=== PATIENT | female | born 1970 ===

== ENCOUNTER → 2022-03-01 | Outpatient (CLI) | payer BC | LOC: COL.RAD 09:42 | DX: M48.061 Spinal stenosis, lumbar region without neurogenic claudication (principal); M54.16 Radiculopathy, lumbar region ==

== ENCOUNTER → 2022-04-22 | Outpatient (CLI) | payer BC | LOC: MHCPAIN 13:51 | DX: M79.7 Fibromyalgia (principal); M54.59 Other low back pain; M54.2 Cervicalgia; M53.3 Sacrococcygeal disorders, not elsewhere classified | CPT/HCPCS: G0463 ==

== ENCOUNTER 2022-05-17 12:01 | Outpatient (CLI) | payer BC ==
[~2022-05-17] VITALS: Ht 165.1 cm; Wt 85.4 kg
[2022-05-17 12:32] VITALS: BP 108/71; PULSE 73; TEMP 98.2
[2022-05-17] MEDS ORDERED: NEXIUM 40MG40 MG PO (12:41)
[2022-05-17] MEDS ORDERED: PROAIR HFA0.09 MG/AC IH (12:41)
[2022-05-17] MEDS ORDERED: LIPITOR20 MG PO (12:41)
[2022-05-17] MEDS ORDERED: PLAVIX 75MG TAB75 MG PO (12:41)
[2022-05-17] MEDS ORDERED: ZANAFLEX CAPSULE4 MG PO (12:42)
[2022-05-17] MEDS ORDERED: LYRICA 150MG C150 MG PO (12:42)
[2022-05-17] MEDS ORDERED: PAMELOR 10MG10 MG PO (12:43)
--- NOTE | 2022-05-17 13:20 | NUR ---
IV DC'd, site wrapped with coban. Pt is escorted to waiting room to meet son. She tolerated infusion without issue.
== END 2022-05-17 13:20 | disposition home or self-care (01) ==
LOC: EUO 12:01
DX: Z79.899 Other long term (current) drug therapy (principal)
CPT/HCPCS: J3489